=== PATIENT | female | born 1975 | race Caucasian/White ===

== ENCOUNTER 2021-06-29 20:44 | Emergency (ER) | payer OTHER ==
--- NOTE | 2021-06-29 21:52 | ED ---
Fall HPI - General Chief Complaint: Fall Stated Complaint: Fall-Body Ache Time Seen by Provider: 06/29/21 21:29 Source: patient, RN notes reviewed, old records reviewed Mode of arrival: ambulatory Limitations: no limitations - History of Present Illness Initial Comments: This is a 45-year-old female with fall off a porch. No head injury. No blood thinners. Patient has multiple complaints knee pain ankle pain back pain but pain. No loss of consciousness no headache chest pain shortness breath or abdominal pain. 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 ROS Other: All systems not noted in ROS Statement are negative. Past Medical History Past Medical History: No Reported History History of Any Multi-Drug Resistant Organisms: None Reported Past Surgical History: Appendectomy, Orthopedic Surgery Smoking Status: Never smoker Past Alcohol Use History: Occasional Past Drug Use History: None Reported General Exam Limitations: no limitations General appearance: alert, in no apparent distress Head exam: Present: atraumatic, normocephalic, normal inspection Eye exam: Present: normal appearance, PERRL, EOMI. Absent: scleral icterus, conjunctival injection, periorbital swelling ENT exam: Present: normal exam, mucous membranes moist Neck exam: Present: normal inspection. Absent: tenderness, meningismus, lymphadenopathy Respiratory exam: Present: normal lung sounds bilaterally. Absent: respiratory distress, wheezes, rales, rhonchi, stridor Cardiovascular Exam: Present: normal rhythm, tachycardia, normal heart sounds. Absent: systolic murmur, diastolic murmur, rubs, gallop, clicks GI/Abdominal exam: Present: soft, normal bowel sounds. Absent: distended, tenderness, guarding, rebound, rigid Extremities exam: Present: normal inspection, full ROM, normal capillary refill. Absent: tenderness, pedal edema, joint swelling, calf tenderness Back exam: Present: normal inspection Neurological exam: Present: alert, oriented X3, CN II-XII intact Psychiatric exam: Present: normal affect, normal mood Skin exam: Present: warm, dry, intact, normal color. Absent: rash Course Vital Signs 06/29/21 06/29/21 21:07 22:48 Temperature 97.4 F L 98 F Pulse Rate 106 H 76 Respiratory 18 20 Rate Blood Pressure 140/95 134/84 O2 Sat by Pulse 97 98 Oximetry - Reevaluation(s) Reevaluation #1: Medical record is reviewed Patient symptoms are improved here in the ER and remained improved Patient informed results and questions answered Medical Decision Making - Medical Decision Making 45 female status post mechanical trip and fall. Patient is multiple areas of pain and contusion but no significant somatic injury. Patient can be discharged home - Radiology Data Radiology results: report reviewed (X-ray chest pelvis wrist ankle knees are negative for significant traumatic injury), image reviewed Disposition Clinical Impression: Fall Disposition: HOME SELF-CARE Condition: Good Instructions (If sedation given, give patient instructions): Fall Prevention (ED) Is patient prescribed a controlled substance at d/c from ED?: No Referrals: Nonstaff,Physician [Primary Care Provider] - 1-2 days
--- NOTE | 2021-06-29 22:00 | XR ---
EXAMINATION TYPE: XR knee complete LT DATE OF EXAM: 06/29/2021 CLINICAL HISTORY: pain TECHNIQUE: Three views of the left knee are obtained. COMPARISON: None. FINDINGS: There is no acute fracture/dislocation. The tri-compartment joint spaces appear within no rmal limits. The overlying soft tissue appears unremarkable. IMPRESSION: There is no acute fracture or dislocation ICD 10 NO FRACTURE, INITIAL EVALUATION
--- NOTE | 2021-06-29 22:01 | XR ---
EXAMINATION TYPE: XR chest 1V DATE OF EXAM: 06/29/2021 COMPARISON: NONE HISTORY: Chest pain TECHNIQUE: Single frontal view of the chest is obtained. FINDINGS: There is no focal air space opacity, pleural effusion, or pneumothorax seen. The cardiac silhouette size is within normal limits. The osseous structures are intact. IMPRESSION: 1. No acute process.
--- NOTE | 2021-06-29 22:01 | XR ---
EXAMINATION TYPE: XR Hip LT and AP Pelvis DATE OF EXAM: 06/29/2021 CLINICAL HISTORY: pain TECHNIQUE: AP and frogleg views of the left hip are obtained. Single view of the pelvis is also subm itted. COMPARISON: None. FINDINGS: There is no acute fracture/dislocation evident. The joint space appears within normal li mits. The overlying soft tissue appears unremarkable. IMPRESSION: 1. There is no acute fracture or dislocation.ICD 10 NO FRACTURE, INITIAL EVALUATION
--- NOTE | 2021-06-29 22:02 | XR ---
EXAMINATION TYPE: XR wrist complete BILATERAL DATE OF EXAM: 06/29/2021 CLINICAL HISTORY: pain TECHNIQUE: Frontal, lateral and oblique images of the bilateral wrists are obtained. Scaphoid views are also submitted. COMPARISON: None. FINDINGS: There is no acute fracture/dislocation evident. The joint spaces appear within normal gr its. The overlying soft tissue appears unremarkable. IMPRESSION: There is no acute fracture or dislocation seen. ICD 10 NO FRACTURE, INITIAL EVALUATION
--- NOTE | 2021-06-29 22:32 | XR ---
EXAMINATION TYPE: XR ankle complete LT DATE OF EXAM: 06/29/2021 COMPARISON: NONE HISTORY: Fall. Ankle pain. TECHNIQUE: 3 views FINDINGS: There is plantar calcaneal spurring. Ankle mortise is anatomic. There is mild soft tissue s welling over the lateral malleolus. IMPRESSION: Calcaneal spurring. No fracture seen.
[2021-06-29] MEDS ORDERED: IBUPROFEN 800 MG TAB PO STA (22:40)
[2021-06-29] MEDS ORDERED: ACET/COD 300 MG/30 MG STARTER PACK 6 TAB BTL PO STA (22:40)
[2021-06-29] MEDS ORDERED: IBUPROFEN 600 MG STARTER PACK 4 TAB BTL PO STA (22:40)
[2021-06-29] MEDS ORDERED: Acetaminophen-Codeine 300-30mg TAB PO STA (22:40)
[2021-06-29 22:49] VITALS: BP 134/84; PULSE 76; RESP 20; TEMP 98
== END 2021-06-29 22:50 | disposition home or self-care (01) ==
LOC: EC 20:44
DX: M25.572 Pain in left ankle and joints of left foot (principal); M25.562 Pain in left knee; M54.9 Dorsalgia, unspecified; W13.0XXA Fall from, out of or through balcony, initial encounter
CPT/HCPCS: 71045; 73502; 99284